=== PATIENT | female | born 1945 | race Caucasian/White ===

== ENCOUNTER 2019-09-06 08:00 | Outpatient (RCR) | payer SELFPAY | END 2019-09-06 23:59 | disposition home or self-care (01) | LOC: ANHAUDIO 08:00 | PROVIDERS: PCP Family Medicine; Visit Provider Family Medicine | DX: Z46.1 Encounter for fitting and adjustment of hearing aid (principal) | CPT/HCPCS: 99199; V5261 ==

== ENCOUNTER 2020-03-26 16:29 | Outpatient (CLI) | payer MEDICARE, SELFPAY ==
--- NOTE | ~2020-03-26 | MM_ITS ---
EXAMINATION: MM screening [facility] w khang HISTORY: Screening TECHNIQUE: Craniocaudal and mediolateral oblique 3-D tomosynthesis images were obtained and synthetic 2-D images were generated. CAD analysis was submitted and interpreted. COMPARISON: Comparison to multiple prior studies sequentially, with oldest reviewed study dated 04/2015. BREAST PARENCHYMAL COMPOSITION: There are scattered areas of fibroglandular density. FINDINGS: There is no evidence of suspicious mass, calcification, or architectural distortion to sugg est malignancy in either breast. There has been no suspicious interval change. IMPRESSION: 1. No mammographic evidence of malignancy. 2. Recommend routine screening mammography in one year. BI-RADS Category 1: Negative Reviewed, dictated and finalized at location A.
== END 2020-03-26 16:30 | disposition home or self-care (01) ==
PROVIDERS: PCP Family Medicine; Visit Provider Family Medicine
DX: Z12.31 Encounter for screening mammogram for malignant neoplasm of breast (principal)
CPT/HCPCS: 77063; 77067

== ENCOUNTER 2020-09-10 11:30 | Outpatient (RCR) | payer SELFPAY | END 2020-09-10 23:59 | disposition home or self-care (01) | LOC: ANHAUDIO 11:30 | PROVIDERS: PCP Family Medicine; Visit Provider Family Medicine | DX: Z46.1 Encounter for fitting and adjustment of hearing aid (principal) | CPT/HCPCS: 99199 ==

== ENCOUNTER 2021-03-29 09:19 | Outpatient (CLI) | payer MEDICARE, SELFPAY ==
--- NOTE | ~2021-03-29 | MM_ITS ---
EXAMINATION: MM screening [facility] BI w khang HISTORY: Screening mammogram TECHNIQUE: Craniocaudal and mediolateral oblique 3-D tomosynthesis images were obtained and synthetic 2-D images were generated. CAD analysis was submitted and interpreted. COMPARISON: 03/26/2020, 02/15/2019, 02/01/2018 BREAST PARENCHYMAL COMPOSITION: There are scattered areas of fibroglandular density. FINDINGS: There is no evidence of suspicious mass, calcification, or architectural distortion to sugg est malignancy in either breast. There has been no suspicious interval change. IMPRESSION: 1. No mammographic evidence of malignancy. 2. Recommend routine screening mammography in one year. BI-RADS Category 1: Negative Reviewed, dictated and finalized at location A.
== END 2021-03-29 09:20 | disposition home or self-care (01) ==
LOC: ANHIMG 09:24
PROVIDERS: PCP Family Medicine; Visit Provider Family Medicine
DX: Z12.31 Encounter for screening mammogram for malignant neoplasm of breast (principal)
CPT/HCPCS: 77063; 77067

== ENCOUNTER 2021-04-30 12:48 | Outpatient (CLI) | payer MEDICARE, SELFPAY ==
--- NOTE | ~2021-04-30 | DEXA_ITS ---
Bone Density Report Name: Shaun Gambino Age: 76 Sex: Female Ethnicity: White Date of : 1945 Indication: osteopenia; parental hip fracture; height loss; asthma or emphysema; hysterectomy; Referring Provider: Adrian Zarate Study: Bone densitometry was performed. Exam Date: April 30, 2021 Accession number: [id number] Bone Density: Region BMD T-score Z-score Classification AP Spine (L2, L3, L4) 1.024 -0.5 2.0 Normal Femoral Neck (Left) 0.573 -2.5 -0.4 Osteoporosis Total Hip (Left) 0.708 -1.9 -0.1 Osteopenia Total Hip Bilateral Avg 0.733 -1.7 0.1 Osteopenia Femoral Neck (Right) 0.571 -2.5 -0.4 Osteoporosis Total Hip (Right) 0.757 -1.5 0.3 Osteopenia World Health Organization criteria for BMD impression classify patients as: Normal (T-score at or above -1.0), Osteopenia (T-score between -1.0 and -2.5), or Osteoporosis (T-score at or below -2.5). 10-year Fracture Risk: FRAX not reported because: Some T-score for Spine Total or Hip Total or Femoral Neck at or below -2.5 Previous Exams: Region Exam Age BMD T-score BMD Change BMD Change Date g/cm2 vs Baseline vs Previous AP Spine(L2, L3, L4) 04/30/2021 76 1.024 -0.5 0.014(1.4%) 0.014(1.4%) 02/20/2017 71 1.009 -0.6 Total Hip(Left) 04/30/2021 76 0.708 -1.9 -0.076(-9.7%)* -0.076(-9.7%)* 02/20/2017 71 0.784 -1.3 Total Hip(Right) 04/30/2021 76 0.757 -1.5 -0.048(-6.0%)* -0.048(-6.0%)* 02/20/2017 71 0.805 -1.1 *Denotes significance at 95% confidence level, LSC for AP Spine = 0.022 g/cm2, LSC for Total Hip = 0.027 g/cm2 Clinical Information Provided by Patient: Parent has had a hip fracture Has used the following medications: Calcium Has the following medical conditions: Asthma or Emphysema, Hysterectomy Patient maximum height was 65 Menopause Age: 48 Drinks caffeinated beverages Onset of menses at age 13 Number of children 3 Impression: The patient has osteoporosis, based on the Left Femoral Neck T-score. The patient has risk factors, including: parental hip fracture. The BMD for the Total Hip(Left) decreased, changing by -9.7% since the last DXA exam. The BMD for the Total Hip(Right) decreased, changing by -6.0% since the last DXA exam. Discussion: INCREASED RISK OF FRACTURE. BONE DENSITY IS UNDESIRABLY LOW AT ONE OR MORE SKELETAL SITES, CONSISTENT WITH POSTMENOPAUSAL OSTEOPOROSIS. This patient's lowest T-score meets the World Health Organization's (WHO) criteria for os
== END 2021-04-30 12:49 | disposition home or self-care (01) ==
LOC: ANHIMG 12:49
PROVIDERS: PCP Family Medicine; Visit Provider Physician Assistant
DX: N95.1 Menopausal and female climacteric states (principal); M81.0 Age-related osteoporosis without current pathological fracture; M85.852 Other specified disorders of bone density and structure, left thigh; M85.851 Other specified disorders of bone density and structure, right thigh
CPT/HCPCS: 77080

== ENCOUNTER 2022-05-10 15:29 | Outpatient (CLI) | payer MEDICARE, SELFPAY ==
--- NOTE | ~2022-05-10 | MM_ITS ---
EXAMINATION: MM screening [facility] w khang HISTORY: Screening mammogram TECHNIQUE: Craniocaudal and mediolateral oblique 3-D tomosynthesis images were obtained and synthetic 2-D images were generated. CAD analysis was submitted and interpreted. COMPARISON: 03/29/2021, 03/26/2020, 02/15/2019 bilateral screening mammogram examinations BREAST PARENCHYMAL COMPOSITION: The breasts are almost entirely fatty. FINDINGS: There is no evidence of suspicious mass, calcification, or architectural distortion to sugg est malignancy in either breast. There has been no suspicious interval change. IMPRESSION: 1. No mammographic evidence of malignancy. 2. Recommend routine screening mammography in one year. BI-RADS Category 1: Negative Reviewed, dictated and finalized at location A.
== END 2022-05-10 15:30 | disposition home or self-care (01) ==
PROVIDERS: PCP Family Medicine; Visit Provider Physician Assistant
DX: Z12.31 Encounter for screening mammogram for malignant neoplasm of breast (principal)
CPT/HCPCS: 77063; 77067

== ENCOUNTER 2022-06-15 12:22 | Emergency (ER) | payer MEDICARE, SELFPAY ==
--- NOTE | ~2022-06-15 | CT_ITS ---
EXAMINATION: CT facial & cervical spine wo DATE: 06/15/2022 13:20 INDICATION: Patient fell and struck head. TECHNIQUE: Computed tomography (CT) of the facial bones and maxillofacial region was performed withou t intravenous contrast. Automated exposure control and iterative reconstruction technique were employ ed. Exam dose: 142.64 mGy-cm total exam DLP. COMPARISON: None. FINDINGS: Right frontal cephalohematoma. No underlying frontal skull fracture. The frontozygomatic sutures, orbital rims and [place], nasal bones, anterior maxillary spine, maxillary bones, zygomatic arches and mandible are intact without evidence of recent fracture. Degenerative changes at the temporomandibular joints. The paranasal sinuses and visualized mastoid air cells are well aerated. No sinus fluid levels or sub cutaneous emphysema. There is straightening of the cervical spine. C1 and C2 are normally aligned and the odontoid process is intact. No fracture or dislocation or lock ed facet or prevertebral soft tissue swelling. There is moderately severe degenerative disc disease at C5-6 and C6-7. IMPRESSION: Right frontal cephalohematoma without underlying frontal skull fracture No recent facial fracture Straightening of cervical spine; no cervical spine fracture, dislocation, locked facet or prevertebra l soft tissue swelling Moderately severe degenerative disc disease at C5-6 and C6-7 Reviewed, dictated and finalized at Location A. Reviewed, dictated and finalized at location A. IMPRESSION: Right frontal cephalohematoma without underlying frontal skull fra cture No recent facial fracture Straightening of cervical spine; no cervical spine fracture, dislocation, stephon d facet or prevertebral soft tissue swelling Moderately severe degenerative disc disease at C5-6 and C6-7
--- NOTE | ~2022-06-15 | CT_ITS ---
EXAMINATION: CT brain wo con DATE: 06/15/2022 13:20 INDICATION: Head injury. TECHNIQUE: Computed tomography (CT) of the head was performed without intravenous contrast. The mA wa s adjusted according to patient size. Iterative reconstruction technique was employed. The dose-lengt h product was 605.33 mGy-cm. COMPARISON: None FINDINGS: There is no intracranial hemorrhage, acute infarction, or abnormal intracranial mass lesion . The ventricles are normal in size. There is mild mucosal thickening in the ethmoid sinuses. The orb its are normal. There is a small right mastoid effusion. There is a right frontal scalp hematoma. IMPRESSION: 1. Normal brain. Reviewed, dictated and finalized at location A. IMPRESSION: 1. Normal brain.
--- NOTE | ~2022-06-15 | XR_ITS ---
EXAM: XR shoulder LT min 2V DATE: 06/15/2022 14:19 HISTORY: fall, left shoulder pain LT PATELLA S.T. ABRASION . COMPARISON: None available. FINDINGS: Decreased mineralization. No fracture or dislocation. No lytic or blastic lesion. Moderate acromioclavicular and mild glenohumeral degenerative change. No erosion or periosteal change. Soft t issues within normal limits. IMPRESSION: No acute osseous finding in the left shoulder. Reviewed, dictated and finalized at location K.
--- NOTE | ~2022-06-15 | XR_ITS ---
EXAMINATION: XR knee LT min 4V DATE: 06/15/2022 14:19 INDICATION: Left knee pain. TECHNIQUE: 4 views of left knee were obtained. COMPARISON: None. FINDINGS: Bone alignment is normal. No fracture. There is mild osteoarthritis of medial and patellofe moral compartments. No knee joint effusion. IMPRESSION: 1. Mild left knee osteoarthritis. Reviewed, dictated and finalized at location A.
[2022-06-15 12:48] VITALS: BP 188/72; PULSE 72; RESP 14; TEMP 36.3; O2SAT 98
--- NOTE | 2022-06-15 14:03 | ED.FALL ---
HPI - Fall General Chief Complaint: Fall Stated Complaint: FALL, HIT HEAD Time Seen by Provider: 06/15/22 14:03 Source: patient Mode of arrival: ambulatory Limitations: no limitations History of Present Illness HPI Narrative: Patient is a 77-year-old female presenting to the emergency department for evaluation of headache pain, extremity pain following a fall from standing. Patient states that she misstepped when walking from the front porch into her house, causing her to fall forward and hit her head. Patient denies any prodromal symptoms prior to the fall such as chest pain, lightheadedness, dizziness, palpitations or shortness of breath. Patient reports headache pain, abrasion to her forehead. She denies vision changes, nausea or vomiting. Patient is reporting pain to her left knee with bruising. Patient is unsure of her tetanus status. She denies hip pain. She has been ambulatory. Related Data Home Medications Medication Instructions Recorded Confirmed albuterol sulfate 90 mcg/actuation 1 inhalation inhalation Q4H 09/11/19 03/28/22 aerosol inhaler (Ventolin HFA) aspirin 81 mg tablet,delayed 81 mg PO DAILY 09/11/19 03/28/22 release (Adult Aspirin Regimen) calcium phosphate 250 mg-vitamin 1 tablet PO DAILY 09/11/19 03/28/22 D3 10 mcg (400 unit) chewable tablet (Caltrate Gummy Bites) multivit with 1 tablet PO DAILY 09/11/19 03/28/22 xwycyglt-glou-TO-lutein 8 mg iron-400 mcg-300 mcg tablet (Centrum Silver Women) polyethylene glycol 3350 17 17 gm PO DAILY 04/27/20 03/28/22 gram/dose oral powder (Miralax) Allergies Allergy/AdvReac Type Severity Reaction Status Date / Time codeine Allergy Unknown unk Verified 03/28/22 14:14 risedronate sodium Allergy Unknown Rash Verified 03/28/22 14:14 Review of Systems Review of Systems: CONSTITUTIONAL: Denies fever, chills, or sweats. EYES: Denies visual changes, redness, or discharge. ENT: Denies rhinorrhea, congestion, sore throat, or otalgia. CARDIOVASCULAR: Denies chest pain, palpitations, or edema. RESPIRATORY: Denies cough or dyspnea. GASTROINTESTINAL: Denies abdominal pain, nausea, vomiting, or diarrhea. GENITOURINARY: Denies dysuria or hematuria. SKIN: Denies rash or itching. Reports abrasion to forehead. MUSCULOSKELETAL: Denies back pain, reports left knee pain and bruising NEUROLOGIC: Reports mild headache without focal numbness, or weakness. [facility] Past Medical History Medical History Abnormal bone density screening (~02/20/17) osteopenia Abnormal stress test (~10/20/16) Essential hypertension Hearing loss History of normal mammogram (~02/15/19) Normal echocardiogram (~12/13/16) Osteopenia Vasovagal syncope Surgical History Surgical History H/O bladder repair surgery (~2005) H/O bladder repair surgery (~1992) H/O: hysterectomy (~1992) History of bunionectomy (~03/29/19) History of colonoscopy (~03/21/17) internal hemorrhoids Family History Family History Father Hypertension Cerebrovascular accident Heart disease Arthritis Stomach cancer Gout History of anesthesia reaction Mother Hypertension Arthritis Heart disease pacemaker Congestive heart failure Pacemaker Son Kidney disease Grandparent Cerebrovascular accident Grandparent Stomach cancer Social History Social History (Updated 03/28/22 @ 14:16 by Roxy Schmitz MA) Smoking status: Never smoker Alcohol intake: never Exam Narrative: Nursing note and vitals reviewed. CONSTITUTIONAL: The patient appears well-developed and well-nourished. No distress. HEAD: Normocephalic, cephalhematoma and abrasions to forehead, no laceration EYES: PERRL, EOMI, normal conjunctiva, anicteric EARS: External ears clear bilaterally, no hemotympanum MOUTH: OP clear, no er
[2022-06-15] MEDS: TETANUS,DIPHTHERIA,AC PERTUSSIS ADULT (0.5 ML) BOOSTRIX IM (15:52)
== END 2022-06-15 15:58 | disposition home or self-care (01) ==
PROVIDERS: Emergency Provider Emergency Medicine; PCP Family Medicine
DX: S06.2X0A Diffuse traumatic brain injury without loss of consciousness, initial encounter (principal); I10 Essential (primary) hypertension; Z23 Encounter for immunization; W01.0XXA Fall on same level from slipping, tripping and stumbling without subsequent striking against object, initial encounter
CPT/HCPCS: 70450; 70486; 72125; 73030; 73564; 90471; 90715; 99284

== ENCOUNTER → 2022-09-27 08:57 | Outpatient (CLI) | payer MEDICARE, SELFPAY ==
--- NOTE | ~2022-09-27 | MR_ITS ---
EXAMINATION: MR brain/brain stem wo con DATE: 09/27/2022 10:07 INDICATION: Head injury. Fall. TECHNIQUE: Magnetic resonance imaging (MRI) of the brain and brainstem was performed without intraven ous contrast. COMPARISON: Head CT 06/15/2022 FINDINGS: There are scattered areas of nonspecific increased T2-weighted signal intensity in the cere bral white matter, which is within normal limits for the patient's age. There is no intracranial hemo rrhage, acute infarction, or abnormal intracranial mass lesion. The ventricles are normal in size. Th ere is mucosal thickening in the paranasal sinuses. Right maxillary sinus is small. The orbits are no rmal. There are trace bilateral mastoid effusions. IMPRESSION: 1. Normal aging brain. Reviewed, dictated and finalized at location A. TAL DESIGN ENGINEER IMPRESSION: 1. Normal aging brain.
== END ==
PROVIDERS: PCP Family Medicine; Visit Provider Family Medicine
DX: R27.0 Ataxia, unspecified (principal)
CPT/HCPCS: 70551

== ENCOUNTER 2023-01-16 14:00 | Outpatient (RCR) | payer MEDICARE, SELFPAY | END 2023-01-16 23:59 | disposition home or self-care (01) | LOC: ANHAUDIO 14:00 | PROVIDERS: PCP Family Medicine; Visit Provider Family Medicine | DX: Z46.1 Encounter for fitting and adjustment of hearing aid (principal) | CPT/HCPCS: 99199; V5014 ==

== ENCOUNTER 2023-06-28 15:27 | Outpatient (CLI) | payer MEDICARE, SELFPAY ==
--- NOTE | ~2023-06-28 | MM_ITS ---
EXAMINATION: MM screening [facility] w khang HISTORY: Screening mammogram TECHNIQUE: Craniocaudal and mediolateral oblique 3-D tomosynthesis images were obtained and synthetic 2-D images were generated. CAD analysis was submitted and interpreted. COMPARISON: 05/10/2022, 03/29/2021, 03/26/2020 bilateral screening mammogram examinations BREAST PARENCHYMAL COMPOSITION: The breasts are almost entirely fatty. FINDINGS: There is no evidence of suspicious mass, calcification, or architectural distortion to sugg est malignancy in either breast. There has been no suspicious interval change. IMPRESSION: 1. No mammographic evidence of malignancy. 2. Recommend routine screening mammography in one year. BI-RADS Category 1: Negative Reviewed, dictated and finalized at location B. STRATEGIC PLANNING
== END 2023-06-28 15:28 | disposition home or self-care (01) ==
PROVIDERS: PCP Family Medicine; Visit Provider Family Medicine
DX: Z12.31 Encounter for screening mammogram for malignant neoplasm of breast (principal)
CPT/HCPCS: 77063; 77067

== ENCOUNTER 2025-02-18 08:38 | Outpatient (CLI) | payer MEDICARE, SELFPAY ==
--- OUTSIDE RECORDS SUMMARY | 2025-02-18 08:42 | XMS_ITS | Referral Summary ---
Author Organization [facility] [place] [address] Address [address] [place] [address] Care Team Providers Care Income Tax Consultant Name Role Phone Aaron Huerta MD Primary Care Provider [phone] Allergies Active Allergy Reactions Criticality Noted Date Comments Risedronate Rash Medium 10/21/2024 Adhesive Tape-Silicones Rash Medium 07/27/2010 Estraderm patch adhesive causes rash Other Unknown High 07/27/2010 gortex sutures Sulfamethoxazole-Trimet hoprim Other (See comments),Stomach upset Low 01/22/2024 Medications aspirin 81 mg chewable tablet chew 1 tablet by oral route every day 30 5 11/07/2016 Active sciyvoay-ebn-MF -lycopen-lutein (CENTRUM SILVER) 0.4-300-250 mg-mcg-mcg tablet take one by mouth daily 0 0 11/07/2016 Active wheat dextrin 3 gram/3.5 gram powder in packet Take by mouth. Active albuterol HFA (PROVENTIL HFA,VENTOLIN HFA,PROAIR HFA) 90 mcg/actuation inhaler Inhale 2 puffs every 6 (six) hours as needed for wheezing Active budesonide-form oterol (SYMBICORT) 160-4.5 mcg/actuation inhaler Inhale 2 puffs 2 (two) times a day Rinse mouth with water after use. Do not swallow. Active losartan (COZAAR) 100 mg tablet Take 1 tablet (100 mg total) by mouth daily 08/11/2022 Active sertraline (ZOLOFT) 50 mg tablet Take 1 tablet (50 mg total) by mouth daily 07/28/2022 Active azelastine (ASTELIN) 137 mcg (0.1 %) nasal spray USE 1 SPRAY IN EACH NOSTRIL EVERY 12 HOURS 09/11/2024 Active fluticasone propionate (FLONASE) 50 mcg/actuation nasal spray SHAKE LIQUID AND USE 1 SPRAY IN EACH NOSTRIL TWICE DAILY 09/11/2024 Active Active Problems Problem Noted Date Diagnosed Date Syncope and collapse 08/22/2022 Diastolic dysfunction 07/01/2019 Hyponatremia 07/01/2019 Lipid screening declined by patient 12/24/2018 Essential hypertension 06/26/2017 Assessment & Plan (12/25/2017 10:49 AM CDT): Continue Aldactone. Recheck BMP in 3 weeks from now to make sure that renal function and potassium level remains within normal Assessment & Plan (12/04/2017 9:16 AM CDT): Blood pressure is much better controlled. Continue losartan and Aldactone. Assessment & Plan (11/28/2017 3:23 PM CDT): A blood pressure is elevated today and that can contribute to diastolic dysfunction. Agree with starting Aldactone 50 mg daily Assessment & Plan (06/26/2017 1:27 PM CAR TRACER): Continue losartan 50 mg p.o. daily. I advised patient to keep blood pressure diary. She will visit Dr. Huerta in 2 months. I advised her to take this blood pressure diary when she sees Dr. Huerta. Chest pressure 06/26/2017 Assessment & Plan (12/25/2017 10:48 AM CDT): No evidence for CAD on cardiac catheterization. Assessment & Plan (12/04/2017 9:16 AM CDT): Remains symptomatic despite negative exercise echocardiogram(EKG portion was positive though). Schedule cardiac catheterization. Assessment & Plan (06/26/2017 1:27 PM CAR TRACER): Negative exercise stress echocardiogram for inducible ischemia. Chest pain has resolved now. Dyspnea on exertion 06/26/2017 Assessment & Plan (12/25/2017 10:48 AM CDT): Likely related to diastolic dysfunction. Markedly improved with controlling blood pressure and with Aldactone. Assessment & Plan (12/04/2017 9:15 AM CDT): She is symptomatic sitting down. Worse exertion. Ischemic changes at rest. Symptoms did not improve with controlling blood pressure with Aldactone. Discussed with patient benefits and risks of cardiac catheterization to rule out underlying coronary artery disease as possible etiology and she agrees to proceed. Assessment & Plan (11/28/2017 3:26 PM CDT): This patient has diastolic dysfunction. I will order a brain atretic peptide as well as basic metabolic panel and CBC to rule out heart failure, acute renal failure, severe anemia as possible etiology for the shortness of breath. I spoke to Dr. Huerta discussed with him. Dr. Huerta has ordered Aldactone 50 mg daily because her blood pressure was elevated and because of the shortness of breath. I will bring this patient back to my clinic in 1 week to reassess. I will discuss with the patient next visit the option of doing cardiac catheterization to rule out underlying ischemia because she continues to be symptomatic. Assessment & Plan (06/26/2017 1:28 PM CAR TRACER): Likely secondary to type 1 diastolic dysfunction. blood pressure is much better controlled now. Her blood pressure will need to be reassessed after we evaluate her blood pressure diary to make sure adequate blood pressure control. She is now doing daily walks and she is building up her tolerance. Will re- evaluate. Resolved Problems Problem Noted Date Diagnosed Date Resolved Date Lipid screening 11/27/2017 10/16/2023 Social History Tobacco Use Types Packs/Day Years Used Date Smoking Tobacco: Never Smokeless Tobacco: Never Tobacco Cessation:Counseling Given: Not Answered Alcohol Use Standard Drinks/Week Comments No 0 (1 standard drink = 0.6 oz pur e alcohol) Comments Unknown Sex and Gender Information Value Date Recorded Sex Assigned at Not on file Legal Sex Female 8:20 PM CAR TRACER Gender Identity Female 08/18/2022 5:34 PM CAR TRACER Sexual Orientation Straight 08/18/2022 5: 34 PM CAR TRACER Last Filed Vital Signs Vital Sign Reading Time Taken Comments Blood Pressure 132/60 10/21/2024 8:34 AM CDT Pulse 89 10/21/2024 8:34 AM CDT Temperature - - Respiratory Rate 16 07/12/2021 9:00 AM CAR TRACER Oxygen Saturation 98% 10/21/2024 8:34 AM CDT Inhaled Oxygen Concentration - - Weight 65.1 kg (143 lb 9.6 oz) 10/21/2024 8:34 A M CDT Height 162.6 cm (5' 4) 10/21/2024 8:34 AM CDT Body Mass Index 24.65 10/21/2024 8:34 AM CDT Plan of Treatment Not on file Insurance MEDICARE MEDICARE [facility] Care Teams Income Tax Consultant Relationship Specialty Start Date End Date Aaron Huerta MD PCP - General 12/21/16
--- OUTSIDE RECORDS SUMMARY | 2025-02-18 08:42 | XMS_ITS | Encounter Summary ---
Author Organization [facility] Healthcare Address [address] [place] [address] Care Team Providers Care Data Lead Name Role Phone Aaron Huerta MD Primary Care Provider [phone] Encounter Details Date Type Department Care Team (Late st Contact Info) Description 12/07/2017 Orders Only [facility] [place] [facility] Information Management [address] [place] [id number] Scanning, Provider Social History Tobacco Use Types Packs/Day Years Used Date Smoking Tobacco: Never Smokeless Tobacco: Never Alcohol Use Standard Drinks/Week Comments No 0 (1 standard drink = 0.6 oz pur e alcohol) Comments Unknown Sex and Gender Information Value Date Recorded Sex Assigned at Not on file Legal Sex Female 8:20 PM STEVEDORING SUPERVISOR Gender Identity Female 08/18/2022 5:34 PM STEVEDORING SUPERVISOR Sexual Orientation Straight 08/18/2022 5: 34 PM STEVEDORING SUPERVISOR documented as of this encounter Plan of Treatment Not on file documented as of this encounter Procedures Procedure Name Priority Date/Time Associated Diagnosis Comments CARDIOLOGY DOCUMENT SCAN 12/07/2017 documented in this encounter Results * Cardiology Document Scan (12/07/2017) Anatomical Region Laterality Modality Other us Provider Scanning CV CARDIAC SERVICES PROCEDURES Final Result documented in this encounter Visit Diagnoses Not on filedocumented in this encounter Care Teams Data Lead Relationship Specialty Start Date End Date Aaron Huerta MD PCP - General 12/21/16 documented as of this encounter
--- OUTSIDE RECORDS SUMMARY | 2025-02-18 08:42 | XMS_ITS | Clinical Summary ---
Author Organization [facility] Address [address] [place] [address] Care Team Providers Care Applications Coordinator Name Role Phone Aaron Huerta MD Primary Care Provider [phone] Source Comments [facility],non-owned Affiliates and Associated Physician Practices is amultiple site organization consisting of ambulatory clinics and hospital sitesin [place], [place], [place] and [place]. This disclosure is being madepursuant to the Care Everywhere program and may not contain all information available regarding this patient. Last updated 18.[facility] Allergies Active Allergy Reactions Criticality Noted Date Comments Adhesive Sensitivity 07/27/2010 Estraderm patch adhesive causes rash Other High 07/27/2010 gortex sutures Sulfamethoxazole-Trime thoprim COUNTRY PRINTER Dysfunction,GI Discomfort 01/22/2024 Medications * Be aware that medications may not be up to date on this document. Alwaysverify current medications with the patient. calcium-vitamin D (OS-INDIA 500 + D) 500-200 MG-UNIT tablet Take 1 (one) tablet by mouth 2 times daily 0 Active Multiple Vitamins-Minera ls (CENTRUM SILVER) TABS Take 1 (one) tablet by mouth daily with food Active budesonide-form oterol (SYMBICORT) 160-4.5 MCG/ACT inhaler Inhale 2 (two) puffs by mouth 2 times daily Active sertraline (ZOLOFT) 50 MG tablet Take 1 (one) tablet by mouth once daily 2 Active losartan (Cozaar) 100 MG tablet Take 1 (one) tablet by mouth once daily 3 Active nitrofurantoin monohyd macro crystals (Macrobid) 100 MG capsuleIndicati ons:Urinary Tract Infection Take 1 (one) capsule by mouth 2 times daily with morning and evening meal Reasons: Urinary Tract Infection 14 capsule 4 Active Active Problems Problem Noted Date Diagnosed Date Essential hypertension 06/26/2017 Overview (10/15/2019): Last Assessment & Plan: Continue Aldactone. Recheck BMP in 3 weeks from now to make sure that renal function and potassium level remains within normal Overactive bladder 10/14/2010 Cystocele 05/07/2008 Social History Tobacco Use Types Packs/Day Years Used Date Smoking Tobacco: Never Smokeless Tobacco: Never Tobacco Cessation:Counseling Given: Not Answered Alcohol Use Standard Drinks/Week Comments No 0 (1 standard drink = 0.6 oz pur e alcohol) PHQ-2 Answer Date Recorded Patient Health Questionnaire-2 Score 0 02/19/2024 Comments No Sex and Gender Information Value Date Recorded Sex Assigned at Not on file Legal Sex Female 9:35 AM WIRE ROPE SLING MAKER Gender Identity Not on file Sexual Orientation Not on file Last Filed Vital Signs Vital Sign Reading Time Taken Comments Blood Pressure 130/70 02/22/2024 10:11 AM CDT Pulse 71 08/03/2010 7:20 AM WIRE ROPE SLING MAKER Temperature 36.4 C (97.6 F) 02/22/2024 10:11 AM CDT Respiratory Rate 18 08/03/2010 7:20 AM WIRE ROPE SLING MAKER Oxygen Saturation 98% 08/03/2010 7:20 AM WIRE ROPE SLING MAKER Inhaled Oxygen Concentration - - Weight 63.1 kg (139 lb 3.2 oz) 02/22/2024 10:11 AM CDT Height 162.6 cm (5' 4) 02/22/2024 10:11 AM CDT Body Mass Index 23.89 02/22/2024 10:11 AM CDT Plan of Treatment Upcoming Encounters Date Type Department Care Team (Late st Contact Info) Description 02/27/2025 9:50 AM CDT Office Visit [facility] - LITIGATION ASSISTANT [address] [place] [address] Andrew Hidalgo Che, MD [address] [place] [id number] Health Maintenance Due Date Last Done Comments BONE DENSITY TESTING 1945 MEDICARE AWV 12 MONTHS 1945 DTAP/TDAP/TD VACCINES (1 - Tdap) 1964 PNEUMOCOCCAL VACCINE 50+ (1 of 1 - PCV) 1995 ZOSTER VACCINE (1 of 2) 1995 Respiratory Syncytial Virus (RSV) Vaccine Pt: or over 60 yrs (1 - 1-dose 75+ series) 2020 COVID-19 VACCINE ( season) 2024 05/25/2022, 05/27/2021, 10/27/2020, Additional history exists DEPRESSION SCREENING 08/14/2024 02/22/2024 INFLUENZA VACCINE (Season Ended) 2025 06/15/2022, 06/10/2021, 06/07/2019, Additional history exists HEPATITIS B VACCINE Aged Out No longe r eligible based on patient's age to complete this topic HIB VACCINE Aged Out No longer eligi ble based on patient's age to complete this topic HPV VACCINE Aged Out No longer eligi ble based on patient's age to complete this topic MENINGOCOCCAL (Group B) VACCINE SHARED DECISION-MAKING Aged Out No longer eligible based on patient's age to complete this topic MENINGOCOCCAL GROUPS A/C/Y/W VACCINE Aged Out No longer eligible based on patient's age to complete this topic [place] [address] [address] MEDICARE MEDICARE MEDICARE SUPPLEMENT PAYOR GENERIC Advance Directives * Full Code (Latest Code Status on File) Date Activated Date Inactivated Comments 08/02/2010 1:12 PM 08/03/2010 11:33 PM Care Teams Applications Coordinator Relationship Specialty Start Date End Date Aaron Huerta MD [facility] [place] [id number] PCP - General 01/22/20
--- OUTSIDE RECORDS SUMMARY | 2025-02-18 08:43 | XMS_ITS | Encounter Summary ---
Author Organization [facility] Address [address] [place] [address] Care Team Providers Care Logistics Program Manager Name Role Phone Lisandra Huerta MD Primary Care Provider + Aaron Huerta MD Primary Care Provider [phone] Encounter Details Date Type Department Care Team (Late st Contact Info) Description 12/13/2016 Orders Only [facility] ProviderDaryl MD [address] [place], [place] [id number] Social History Tobacco Use Types Packs/Day Years Used Date Smoking Tobacco: Never Alcohol Use Standard Drinks/Week Comments No 0 (1 standard drink = 0.6 oz pur e alcohol) Comments Unknown Sex and Gender Information Value Date Recorded Sex Assigned at Not on file Legal Sex Female 8:20 PM EPIC APPLICATION COORDINATOR Gender Identity Female 08/18/2022 5:34 PM EPIC APPLICATION COORDINATOR Sexual Orientation Straight 08/18/2022 5: 34 PM EPIC APPLICATION COORDINATOR documented as of this encounter Plan of Treatment Not on file documented as of this encounter Procedures Procedure Name Priority Date/Time Associated Diagnosis Comments CARDIOLOGY REPORT 12/13/2016 CARDIOLOGY REPORT 12/13/2016 documented in this encounter Results * CARDIOLOGY REPORT (12/13/2016) Anatomical Region Laterality Modality Other Narrative 12/13/2016 Ordered by an unspecified provider. Historical Provider [facility] Final Result * CARDIOLOGY REPORT (12/13/2016) Anatomical Region Laterality Modality Other Narrative 12/13/2016 Ordered by an unspecified provider. us Historical Provider [facility] Final Result documented in this encounter Visit Diagnoses Not on filedocumented in this encounter Care Teams Logistics Program Manager Relationship Specialty Start Date End Date Lisandra Huerta MD PCP - General 11/11/16 12/20/16 Aaron Huerta MD PCP - General 12/21/16 documented as of this encounter
--- OUTSIDE RECORDS SUMMARY | 2025-02-18 08:43 | XMS_ITS | Encounter Summary ---
Author Organization [facility] Address [address] [facility] [facility] [address] [place] [address] Care Team Providers Care Sandblasting Supervisor Name Role Phone Lisandra Huerta MD Primary Care Provider + Aaron Huerta MD Primary Care Provider [phone] Encounter Details Date Type Department Care Team (Late st Contact Info) Description 10/20/2016 Orders Only [facility] ProviderDaryl MD [address] [place], [place] [id number] Social History Tobacco Use Types Packs/Day Years Used Date Smoking Tobacco: Never Assessed Comments Unknown Sex and Gender Information Value Date Recorded Sex Assigned at Not on file Legal Sex Female 8:20 PM ACETYLENE OPERATOR Gender Identity Female 08/18/2022 5:34 PM ACETYLENE OPERATOR Sexual Orientation Straight 08/18/2022 5: 34 PM ACETYLENE OPERATOR documented as of this encounter Plan of Treatment Not on file documented as of this encounter Procedures Procedure Name Priority Date/Time Associated Diagnosis Comments CARDIOLOGY REPORT 10/20/2016 CARDIOLOGY REPORT 10/20/2016 documented in this encounter Results * CARDIOLOGY REPORT (10/20/2016) Anatomical Region Laterality Modality Other Narrative 10/20/2016 Ordered by an unspecified provider. Historical Provider [facility] Final Result * CARDIOLOGY REPORT (10/20/2016) Anatomical Region Laterality Modality Other Narrative 10/20/2016 Ordered by an unspecified provider. us Historical Provider [facility] Final Result documented in this encounter Visit Diagnoses Not on filedocumented in this encounter Care Teams Sandblasting Supervisor Relationship Specialty Start Date End Date Lisandra Huerta MD PCP - General 11/11/16 12/20/16 Aaron Huerta MD PCP - General 12/21/16 documented as of this encounter
--- OUTSIDE RECORDS SUMMARY | 2025-02-18 08:43 | XMS_ITS | Clinical Summary ---
Author Organization [facility] [address] Address [address] [place] [address] Care Team Providers Care Account Consultant Name Role Phone Aaron Huerta MD Primary Care Provider [phone] Allergies Active Allergy Reactions Criticality Noted Date Comments Risedronate Rash Medium 10/21/2024 Adhesive Tape-Silicones Rash Medium 07/27/2010 Estraderm patch adhesive causes rash Other Unknown High 07/27/2010 gortex sutures Sulfamethoxazole-Trimet hoprim Other (See comments),Stomach upset Low 01/22/2024 Medications aspirin 81 mg chewable tablet chew 1 tablet by oral route every day 30 5 11/07/2016 Active tpiatfvh-iup-NN -lycopen-lutein (CENTRUM SILVER) 0.4-300-250 mg-mcg-mcg tablet take [...] daily Assessment & Plan (06/26/2017 1:27 PM SENIOR MOBILE WEB DEVELOPER): Continue losartan 50 mg p.o. daily. I [...] catheterization. Assessment & Plan (06/26/2017 1:27 PM SENIOR MOBILE WEB DEVELOPER): Negative exercise stress echocardiogram for inducible ischemia. [...] symptomatic. Assessment & Plan (06/26/2017 1:28 PM SENIOR MOBILE WEB DEVELOPER): Likely secondary to type 1 diastolic dysfunction. [...] Date Resolved Date Lipid screening 11/27/2017 10/16/2023 Surgical History Surgery Date Site/Laterality Comments TOTAL ABDOMINAL HYSTERECTOMY Hysterectomy, total CARDIAC CATHETERIZATION Medical History Medical History Date Comments Hx Other Medical Cataracts Hx Other Medical Bladder Repair Hypertension Diastolic dysfunction Family History Medical History Relation Name Comments Stroke Father Stroke; Cause o f : Stroke Heart failure Mother Congestive hea rt failure; Cause of : Congestive heart failure Hypertension Sister Hypertension; Relation Name Status Comments Father (Age 98) Mother Sister Social History Tobacco Use Types Packs/Day Years Used Date Smoking Tobacco: Never Smokeless Tobacco: Never Tobacco Cessation:Counseling Given: Not Answered Alcohol Use Standard Drinks/Week Comments No 0 (1 standard drink = 0.6 oz pur e alcohol) Comments Unknown Sex and Gender Information Value Date Recorded Sex Assigned at Not on file Legal Sex Female 8:20 PM SENIOR MOBILE WEB DEVELOPER Gender Identity Female 08/18/2022 5:34 PM SENIOR MOBILE WEB DEVELOPER Sexual Orientation Straight 08/18/2022 5: 34 PM SENIOR MOBILE WEB DEVELOPER Obstetrics History Last Filed Vital Signs Vital Sign Reading Time Taken Comments Blood Pressure 132/60 10/21/2024 8:34 AM CDT Pulse 89 10/21/2024 8:34 AM CDT Temperature - - Respiratory Rate 16 07/12/2021 9:00 AM SENIOR MOBILE WEB DEVELOPER Oxygen Saturation 98% 10/21/2024 8:34 AM CDT Inhaled Oxygen Concentration - - Weight 65.1 kg (143 lb 9.6 oz) 10/21/2024 8:34 A M CDT Height 162.6 cm (5' 4) 10/21/2024 8:34 AM CDT Body Mass Index 24.65 10/21/2024 8:34 AM CDT Plan of Treatment Health Maintenance Due Date Last Done Comments Depression Screening 1945 Fall Risk Assessment 1945 Hepatitis C Screening 1945 Osteoporosis Screening-Bone Density Scan 1945 DTaP/Tdap/Td Vaccine (1 - Tdap) 1956 Hepatitis B Screening 1963 Zoster Vaccine (1 of 2) 1995 Well Visit 65+ 2010 Pneumococcal vaccine 65+ (2 of 2 - PPSV23) 06/24/2016 06/24/2015 Influenza Vaccine (#1) 2025 9, 06/14/2018, 06/22/2016, Additional history exists [place] [address] MEDICARE [facility] Care Teams Account Consultant Relationship Specialty Start Date End Date Aaron Huerta MD PCP - General 12/21/16
== END 2025-02-18 08:39 | disposition home or self-care (01) ==
LOC: ANHAUDIO 08:39
PROVIDERS: PCP Family Medicine; Visit Provider Family Medicine
DX: H90.3 Sensorineural hearing loss, bilateral (principal)
CPT/HCPCS: 92557; 92567; 99199